=== PATIENT | female | born 1945 | race Caucasian/White ===

== ENCOUNTER 2017-01-01 07:41 | Day surgery (SDC) | payer OTHER ==
[~2017-01-01] VITALS: Ht 162.6 cm; Wt 63.0 kg
[~2017-01-01 07:41] MED LIST: ACETAMINOPHEN325 M1 PO; APRESOLINE50 MG PO; CIPRO250 MG PO; CUBICIN500 MG/10 IV; DEMADEX20 MG PO; GLIPIZIDE ER2.5 MG PO; GLIPIZIDE10 MG PO; GLUCOVANCE 51 TABLET PO; HEPARIN SO5000 UNITS SC; HYDROCODON-ACE1 EAC7 PO; LANTUS 3 M100 UNITS1 SC; LASIX20 MG PO; LISINOPRIL20 MG PO; LOSARTAN POTASS50 MG PO; MIRALAX17 GM PO; MUSCLE RELAXER; PROCARDIA XL60 MG PO; SENNA PLUS TAB1 EACH PO; SERTRALINE HCL25 MG PO; TORSEMIDE20 MG PO; ZESTRIL40 MG PO
[2017-01-01 08:15] VITALS: BP 184/75
[2017-01-01 09:13] LABS: ANION GAP 10 MEQ/L (2-14); CHLORIDE 101 MEQ/L (99-109); POTASSIUM 3.7 MEQ/L (3.7-5.4); SAMPLE HEMOLYSIS CHECK 0; SAMPLE ICTERIC CHECK 0; SAMPLE LIPEMIA CHECK 0; SODIUM 135 MEQ/L (136-147)
[2017-01-01 09:19] LABS: GFR ESTIMATE (CALCULATED) 15 mL/min/; GLUCOSE 113 mg/dL (70-99); UREA NITROGEN (BUN) 80 mg/dL (9-23)
[2017-01-01 11:17] LABS: POINT-OF-CARE METER ID UU13113675
[2017-01-01 11:35] VITALS: BP 195/82
[2017-01-01 12:09] VITALS: BP 187/83
== END 2017-01-01 12:15 | disposition home or self-care (01) ==
LOC: SDC 07:41
PROVIDERS: Ophthalmology
DX: H35.371 Puckering of macula, right eye (principal); H35.81 Retinal edema; I12.9 Hypertensive chronic kidney disease with stage 1 through stage 4 chronic kidney disease, or unspecified chronic kidney disease; E11.22 Type 2 diabetes mellitus with diabetic chronic kidney disease; N18.4 Chronic kidney disease, stage 4 (severe); M54.5 Low back pain
CPT/HCPCS: 80048; 82948; 93005; J0690; J0713; J2405; J3300

== ENCOUNTER 2017-02-25 05:03 | Day surgery (SDC) | payer OTHER ==
[~2017-02-25] VITALS: Ht 162.6 cm; Wt 62.0 kg
[2017-02-25 06:03] VITALS: BP 134/60
[2017-02-25 06:30] LABS: HEMATOCRIT 26.3 % (36.0-46.0); MCH 29.5 PG (29.0-34.0); MCHC 33.8 G/DL (30.0-36.0); MCV 87.1 FL (83-99); PLATELET COUNT 269 K/uL (156-360); RBC DIS.WIDTH-CV 12.2 % (11.8-14.6); RBC DIS.WIDTH-SD 39.2 % (39-53); RED BLOOD COUNT 3.02 M/uL (3.80-5.20); WHITE BLOOD COUNT 9.3 K/uL (4.1-10.2)
[2017-02-25 06:36] LABS: POINT-OF-CARE METER ID UU14174212
[2017-02-25 06:43] LABS: CHLORIDE 108 mEq/L (99-109); SODIUM 142 mEq/L (136-147)
[2017-02-25 06:44] LABS: GLUCOSE 152 mg/dL (70-99)
[2017-02-25 06:46] LABS: ANION GAP 13 MEQ/L (2-14)
[2017-02-25 06:48] LABS: GFR ESTIMATE (CALCULATED) 18 mL/min/
[2017-02-25 06:49] LABS: UREA NITROGEN (BUN) 64 mg/dL (9-23)
[2017-02-25 09:33] LABS: POINT-OF-CARE METER ID UU13113675; POINT-OF-CARE USER ID 515036437
[2017-02-25 10:04] VITALS: BP 136/53
[2017-02-25 11:20] VITALS: BP 140/66
[2017-02-25 13:03] VITALS: BP 131/49
[2017-02-25 14:34] VITALS: BP 109/46
== END 2017-02-25 13:37 | disposition home or self-care (01) ==
LOC: SDC 05:03
PROVIDERS: Surgery
DX: I12.0 Hypertensive chronic kidney disease with stage 5 chronic kidney disease or end stage renal disease (principal); E11.22 Type 2 diabetes mellitus with diabetic chronic kidney disease; N18.6 End stage renal disease; Z99.2 Dependence on renal dialysis; Z79.84 Long term (current) use of oral hypoglycemic drugs; Z82.49 Family history of ischemic heart disease and other diseases of the circulatory system; Z83.3 Family history of diabetes mellitus
CPT/HCPCS: 80048; 82948; 85027; J0690; J1170; J1644; J2250; J2720; J3010

== ENCOUNTER 2017-05-20 05:31 | Day surgery (SDC) | payer OTHER ==
[~2017-05-20] VITALS: Ht 162.6 cm; Wt 62.0 kg
[~2017-05-20 05:31] MED LIST changes: +CELEXA10 MG PO; +COZAAR100 MG PO; +METOLAZONE2.5 MG PO; +NIFEDIPINE ER60 MG PO
[2017-05-20 05:54] VITALS: BP 142/62
[2017-05-20 06:41] LABS: HEMATOCRIT 35.7 % (36.0-46.0); MCH 28.6 PG (29.0-34.0); MCHC 32.2 G/DL (30.0-36.0); MCV 88.8 FL (83-99); MEAN PLAT.VOLUME 11.1 uM^3 (9.5-12.4); PLATELET COUNT 323 K/uL (156-360); RBC DIS.WIDTH-CV 12.5 % (11.8-14.6); RBC DIS.WIDTH-SD 40.8 % (39-53); RED BLOOD COUNT 4.02 M/uL (3.80-5.20); WHITE BLOOD COUNT 8.9 K/uL (4.1-10.2)
[2017-05-20 07:11] LABS: ANION GAP 13 MEQ/L (2-14); CHLORIDE 108 MEQ/L (99-109); GFR ESTIMATE (CALCULATED) 15 mL/min/; GLUCOSE 123 mg/dL (70-99); POTASSIUM 4.2 MEQ/L (3.7-5.4); SAMPLE HEMOLYSIS CHECK 0; SAMPLE ICTERIC CHECK 0; SAMPLE LIPEMIA CHECK 0; SODIUM 141 MEQ/L (136-147); UREA NITROGEN (BUN) 76 mg/dL (9-23)
[2017-05-20 09:22] LABS: POINT-OF-CARE METER ID UU13113675
[2017-05-20 12:45] VITALS: BP 151/66
[2017-05-20 13:50] VITALS: BP 159/55
== END 2017-05-20 14:15 | disposition home or self-care (01) ==
LOC: SDC 05:31
PROVIDERS: Surgery
DX: I12.0 Hypertensive chronic kidney disease with stage 5 chronic kidney disease or end stage renal disease (principal); E11.22 Type 2 diabetes mellitus with diabetic chronic kidney disease; N18.6 End stage renal disease
CPT/HCPCS: 80048; 82948; 85027; J0690; J1170; J1644; J2250; J2405; J2720; J2765; J3010

== ENCOUNTER 2017-06-16 11:51 | Inpatient (IN) | payer OTHER ==
[~2017-06-16] VITALS: Ht 162.6 cm; Wt 65.9 kg
[2017-06-16 12:41] LABS: PROTHROMBIN TIME 10.5 SEC (10.2-12.9)
[2017-06-16 12:44] LABS: PTT 30.7 SEC (25-37)
[2017-06-16 12:45] LABS: AMYLASE 53 IU/L (1-118); CHLORIDE 108 mEq/L (99-109); POTASSIUM 4.9 mEq/L (3.7-5.4); SODIUM 138 mEq/L (136-147)
[2017-06-16 12:47] LABS: GLUCOSE 203 mg/dL (70-99)
[2017-06-16 12:48] LABS: ANION GAP 14 MEQ/L (2-14)
[2017-06-16 12:50] LABS: SERUM ETHYL ALCOHOL < 10 mg/dL
[2017-06-16 12:51] LABS: GFR ESTIMATE (CALCULATED) 12 mL/min/
[2017-06-16 12:52] LABS: UREA NITROGEN (BUN) 85 mg/dL (9-23)
[2017-06-16 12:53] LABS: EOSINOPHIL (%) 1.8 % (0-5); EOSINOPHIL COUNT 0.2 K/uL (0-0.3); HEMATOCRIT 33.6 % (36.0-46.0); IMMATURE GRANULOCYTE (%) 0.3 % (0.0-0.7); INSTRUMENT ABS NEUTROPHIL CT 6.7 K/uL; LYMPHOCYTE COUNT 2.2 K/uL (1.0-2.8); MCH 26.9 PG (29.0-34.0); MCHC 31.8 G/DL (30.0-36.0); MCV 84.4 FL (83-99); MEAN PLAT.VOLUME 11.8 uM^3 (9.5-12.4); MONOCYTE (%) 3.8 % (3-12); MONOCYTE COUNT 0.4 K/uL (0-0.8); NEUTROPHIL (%) 70.6 % (45-76); NEUTROPHIL COUNT 6.7 K/uL (1.8-6.4); PLATELET COUNT 274 K/uL (156-360); RBC DIS.WIDTH-CV 13.2 % (11.8-14.6); RBC DIS.WIDTH-SD 40.9 % (39-53); RED BLOOD COUNT 3.98 M/uL (3.80-5.20); TROP-I INTERPRETATION NEGATIVE; TROPONIN-I 0.01 ng/mL (0.0-0.30); WHITE BLOOD COUNT 9.5 K/uL (4.1-10.2)
[2017-06-16 12:54] LABS: LIPASE 35 U/L (1.0-51.0)
[2017-06-16 15:01] LABS: ADD MIUA? YES; BILIRUBIN NEGATIVE; BLOOD NEGATIVE; COLOR YELLOW ((YELLOW)); GLUCOSE (STRIP) NEGATIVE; KETONES NEGATIVE; LEUKOCYTES NEGATIVE; NITRITE NEGATIVE; PROTEIN (STRIP) 30; SPECIFIC GRAVITY 1.009 (1.000-1.030); UROBILINOGEN 0.2 MG/DL (0.2-1.0)
[2017-06-16 15:14] LABS: AMPHETAMINE NEGATIVE (500 ng/mL); BARBITURATES NEGATIVE (200 ng/mL); BENZODIAZEPINES NEGATIVE (150 ng/mL); COCAINE NEGATIVE (150 ng/mL); INTERNAL CONTROLS VALID? YES; METHADONE NEGATIVE (200 ng/mL); METHAMPHETAMINE NEGATIVE (500 ng/mL); OPIATES (MORPHINE) NEGATIVE (100 ng/mL); OXYCODONE NEGATIVE (100 ng/mL); PHENCYCLIDINE NEGATIVE (25 ng/mL); PROPOXYPHENE NEGATIVE (300 ng/mL); THC CANNABINOIDS NEGATIVE (50 ng/mL); TRICYCLIC ANTIDEPRESSANTS NEGATIVE (300 ng/mL)
[2017-06-16 15:26] LABS: BACTERIA NONE SEEN /HPF; EPITHELIAL CELLS RARE /HPF; MUCUS NONE SEEN /LPF; RED BLOOD CELLS NONE SEEN /HPF (0-5); UCUL ADDED? NO; WHITE BLOOD CELLS NONE SEEN /HPF (0-5)
[2017-06-16 15:27] LABS: AMORPHOUS URATES CRYSTALS 3+; CASTS NONE SEEN /LPF; CRYSTALS PRESENT
[2017-06-16] MEDS ORDERED: APRESOLINE50 MG PO (16:08)
[2017-06-16] MEDS ORDERED: GLUCOTROL XL2.5 MG PO (16:10)
[2017-06-16] MEDS ORDERED: HYDROCODON-ACE1 EAC7 PO (16:14)
[2017-06-16] MEDS ORDERED: FLEXERIL5 MG PO (16:18)
[2017-06-16] MEDS ORDERED: PROCRIT10000 UNI1 IV (16:19)
[2017-06-16 18:34] VITALS: BP 190/82
[2017-06-16 19:55] VITALS: BP 188/66
[2017-06-16 21:15] VITALS: BP 190/68
[2017-06-16 21:54] VITALS: BP 178/60
[2017-06-16 23:57] VITALS: BP 134/80
[2017-06-17] VITALS (8 sets, daily range): BP systolic 132–205; BP diastolic 70–86
[2017-06-17 05:58] LABS: HDL CHOLESTEROL 38 MG/DL (Desirable>=50); LDL CHOLESTEROL 99 mg/dL (Desirable<100); NON-HDL CHOLESTEROL 126 mg/dL (Desirable<160); TOTAL CHOLESTEROL 164 mg/dL (Desirable<200); TRIGLYCERIDES 137 MG/DL (Normal: <150)
[2017-06-17 07:38] LABS: Estimated Average Glucose 114 mg/dL (70-123)
[2017-06-17 08:17] LABS: HEMOGLOBIN A1c (GLYCOHEMOGLOB) 5.6 % HGB (Below 5.7)
[2017-06-17 16:36] LABS: POINT-OF-CARE METER ID UU13113717
[2017-06-17 23:53] LABS: POINT-OF-CARE METER ID UU13113717
[2017-06-18 04:07] VITALS: BP 149/66
[2017-06-18 04:18] LABS: EOSINOPHIL (%) 0.3 % (0-5); HEMATOCRIT 34.5 % (36.0-46.0); IMMATURE GRANULOCYTE (%) 0.3 % (0.0-0.7); INSTRUMENT ABS NEUTROPHIL CT 6.9 K/uL; MCHC 31.9 G/DL (30.0-36.0); MCV 84.6 FL (83-99); MONOCYTE (%) 4.9 % (3-12); MONOCYTE COUNT 0.5 K/uL (0-0.8); NEUTROPHIL (%) 73.3 % (45-76); NEUTROPHIL COUNT 6.9 K/uL (1.8-6.4); PLATELET COUNT 292 K/uL (156-360); RBC DIS.WIDTH-CV 13.7 % (11.8-14.6); RBC DIS.WIDTH-SD 42.5 % (39-53); RED BLOOD COUNT 4.08 M/uL (3.80-5.20); WHITE BLOOD COUNT 9.4 K/uL (4.1-10.2)
[2017-06-18 04:42] LABS: CHLORIDE 112 mEq/L (99-109); MAGNESIUM 2.3 mg/dL (1.3-2.7); POTASSIUM 5.2 mEq/L (3.7-5.4); SODIUM 142 mEq/L (136-147)
[2017-06-18 04:44] LABS: GLUCOSE 128 mg/dL (70-99)
[2017-06-18 04:45] LABS: ANION GAP 12 MEQ/L (2-14)
[2017-06-18 04:48] LABS: GFR ESTIMATE (CALCULATED) 15 mL/min/; UREA NITROGEN (BUN) 81 mg/dL (9-23)
[2017-06-18 07:58] LABS: POINT-OF-CARE METER ID UU13113717
[2017-06-18 08:42] VITALS: BP 142/78
[2017-06-18 10:34] LABS: UR CREATININE CONCENTRATION 59.8 MG/DL
[2017-06-18 13:03] VITALS: BP 162/88
[2017-06-18 16:07] VITALS: BP 140/69
[2017-06-18 19:29] VITALS: BP 129/61
[2017-06-18 23:39] VITALS: BP 155/69
[2017-06-19 04:04] VITALS: BP 121/64
[2017-06-19 05:27] LABS: EOSINOPHIL COUNT 0.3 K/uL (0-0.3); HEMATOCRIT 31.4 % (36.0-46.0); IMMATURE GRANULOCYTE (%) 0.4 % (0.0-0.7); INSTRUMENT ABS NEUTROPHIL CT 5.2 K/uL; LYMPHOCYTE COUNT 2.4 K/uL (1.0-2.8); MCH 27.5 PG (29.0-34.0); MCHC 31.5 G/DL (30.0-36.0); MCV 87.2 FL (83-99); MEAN PLAT.VOLUME 10.9 uM^3 (9.5-12.4); MONOCYTE (%) 6.5 % (3-12); MONOCYTE COUNT 0.6 K/uL (0-0.8); NEUTROPHIL (%) 61.9 % (45-76); NEUTROPHIL COUNT 5.2 K/uL (1.8-6.4); PLATELET COUNT 255 K/uL (156-360); RBC DIS.WIDTH-CV 13.7 % (11.8-14.6); RBC DIS.WIDTH-SD 43.3 % (39-53); WHITE BLOOD COUNT 8.5 K/uL (4.1-10.2)
[2017-06-19 06:16] LABS: ANION GAP 11 MEQ/L (2-14); CHLORIDE 108 MEQ/L (99-109); GFR ESTIMATE (CALCULATED) 12 mL/min/; GLUCOSE 117 mg/dL (70-99); POTASSIUM 4.9 MEQ/L (3.7-5.4); SAMPLE HEMOLYSIS CHECK 0; SAMPLE ICTERIC CHECK 0; SAMPLE LIPEMIA CHECK 0; SODIUM 140 MEQ/L (136-147); UREA NITROGEN (BUN) 85 mg/dL (9-23)
[2017-06-19 08:22] VITALS: BP 150/68
[2017-06-19 11:46] VITALS: BP 139/52
[2017-06-19 15:42] VITALS: BP 141/66
[2017-06-19 18:10] LABS: POINT-OF-CARE METER ID UU14188625
[2017-06-19 19:43] VITALS: BP 151/67
[2017-06-19 23:49] VITALS: BP 160/60
[2017-06-20 06:27] LABS: EOSINOPHIL COUNT 0.3 K/uL (0-0.3); HEMATOCRIT 29.1 % (36.0-46.0); IMMATURE GRANULOCYTE (%) 0.3 % (0.0-0.7); INSTRUMENT ABS NEUTROPHIL CT 4.4 K/uL; LYMPHOCYTE COUNT 2.6 K/uL (1.0-2.8); MCH 27.8 PG (29.0-34.0); MCHC 32.3 G/DL (30.0-36.0); MCV 86.1 FL (83-99); MEAN PLAT.VOLUME 11.8 uM^3 (9.5-12.4); MONOCYTE (%) 6.4 % (3-12); MONOCYTE COUNT 0.5 K/uL (0-0.8); NEUTROPHIL (%) 56.2 % (45-76); NEUTROPHIL COUNT 4.4 K/uL (1.8-6.4); PLATELET COUNT 222 K/uL (156-360); RBC DIS.WIDTH-CV 13.7 % (11.8-14.6); RED BLOOD COUNT 3.38 M/uL (3.80-5.20); WHITE BLOOD COUNT 7.8 K/uL (4.1-10.2)
[2017-06-20 06:52] LABS: ANION GAP 11 MEQ/L (2-14); CHLORIDE 108 MEQ/L (99-109); GFR ESTIMATE (CALCULATED) 11 mL/min/; GLUCOSE 96 mg/dL (70-99); POTASSIUM 4.7 MEQ/L (3.7-5.4); SAMPLE HEMOLYSIS CHECK 0; SAMPLE ICTERIC CHECK 0; SAMPLE LIPEMIA CHECK 0; SODIUM 138 MEQ/L (136-147); UREA NITROGEN (BUN) 84 mg/dL (9-23)
[2017-06-20 08:58] VITALS: BP 146/59
[2017-06-20 12:07] LABS: POINT-OF-CARE METER ID UU14174225
[2017-06-20] MEDS ORDERED: NOVOLOG PE100 UNITS/ SC (12:25)
[2017-06-20] MEDS ORDERED: JANUVIA25 MG PO (12:25)
[2017-06-20] MEDS ORDERED: TORSEMIDE10 MG PO (12:25)
[2017-06-20] MEDS ORDERED: APRESOLINE100 MG PO (12:26)
[2017-06-20] MEDS ORDERED: LIPITOR20 MG PO (12:30)
[2017-06-20] MEDS ORDERED: APRESOLINE10 MG IV (15:04)
[2017-06-20] MEDS ORDERED: ZOFRAN4 MG IV (15:05)
[2017-06-20] MEDS ORDERED: GLIPIZIDE5 MG PO (15:05)
[2017-06-20] MEDS ORDERED: PRAVACHOL40 MG PO (15:06)
[2017-06-20] MEDS ORDERED: CATAPRES0.1 MG PO (15:06)
[2017-06-20] MEDS ORDERED: ASPIRIN325 MG PO (15:07)
== END 2017-06-20 13:15 | DRG 65 ==
LOC: EME 11:51 → EDOF 15:28 → 5SOUTH 15:28 → ENRESERV 15:38 → 5SOUTH 17:57
PROVIDERS: Emergency Medicine; Internal Medicine; Internal Medicine Nephrology
DX: I63.9 Cerebral infarction, unspecified (principal); G81.94 Hemiplegia, unspecified affecting left nondominant side; I12.9 Hypertensive chronic kidney disease with stage 1 through stage 4 chronic kidney disease, or unspecified chronic kidney disease; N18.4 Chronic kidney disease, stage 4 (severe); N17.9 Acute kidney failure, unspecified; T50.2X5A Adverse effect of carbonic-anhydrase inhibitors, benzothiadiazides and other diuretics, initial encounter; N13.30 Unspecified hydronephrosis; N31.9 Neuromuscular dysfunction of bladder, unspecified; R33.9 Retention of urine, unspecified; E11.22 Type 2 diabetes mellitus with diabetic chronic kidney disease; E78.5 Hyperlipidemia, unspecified; Z91.14 Patient's other noncompliance with medication regimen; Z91.19 Patient's noncompliance with other medical treatment and regimen; Z79.84 Long term (current) use of oral hypoglycemic drugs; Z79.82 Long term (current) use of aspirin; Z86.73 Personal history of transient ischemic attack (TIA), and cerebral infarction without residual deficits
CPT/HCPCS: 70450; 70551; 76770; 80048; 80061; 81003; 82150; 82570; 82948; 83036; 83690; 83735; 84100; 84156; 84484; 85025; 85610; 85730; 86900; 86901; 87086; 92610 GN; 93005; 93880; 99281; 99285; G0480; J0360; J1815; J2405

== ENCOUNTER 2017-06-20 12:17 | Inpatient (IN) | payer OTHER ==
[~2017-06-20] VITALS: Ht 162.6 cm; Wt 65.8 kg
[~2017-06-20 12:17] MED LIST changes: +FLEXERIL5 MG PO; +GLUCOTROL XL2.5 MG PO; +PROCRIT10000 UNI1 IV
[2017-06-20] MEDS ORDERED: JANUVIA25 MG PO (12:25)
[2017-06-20] MEDS ORDERED: NOVOLOG PE100 UNITS/ SC (12:25)
[2017-06-20] MEDS ORDERED: TORSEMIDE10 MG PO (12:25)
[2017-06-20] MEDS ORDERED: APRESOLINE100 MG PO (12:26)
[2017-06-20] MEDS ORDERED: LIPITOR20 MG PO (12:30)
[2017-06-20 13:32] VITALS: BP 160/80
[2017-06-20] MEDS ORDERED: APRESOLINE10 MG IV (15:04)
[2017-06-20] MEDS ORDERED: ZOFRAN4 MG IV (15:05)
[2017-06-20] MEDS ORDERED: GLIPIZIDE5 MG PO (15:05)
[2017-06-20] MEDS ORDERED: PRAVACHOL40 MG PO (15:06)
[2017-06-20] MEDS ORDERED: CATAPRES0.1 MG PO (15:06)
[2017-06-20] MEDS ORDERED: ASPIRIN325 MG PO (15:07)
[2017-06-20 15:50] VITALS: BP 157/67
[2017-06-20 16:37] LABS: POINT-OF-CARE METER ID UU13113720
[2017-06-20 21:06] LABS: POINT-OF-CARE METER ID UU13113712
[2017-06-21 00:30] VITALS: BP 145/70
[2017-06-21 04:54] VITALS: BP 136/61
[2017-06-21 05:31] LABS: HEMATOCRIT 28.4 % (36.0-46.0); MCH 26.7 PG (29.0-34.0); MCHC 31.3 G/DL (30.0-36.0); MCV 85.3 FL (83-99); MEAN PLAT.VOLUME 11.4 uM^3 (9.5-12.4); PLATELET COUNT 210 K/uL (156-360); RBC DIS.WIDTH-CV 13.6 % (11.8-14.6); RBC DIS.WIDTH-SD 42.5 % (39-53); RED BLOOD COUNT 3.33 M/uL (3.80-5.20); WHITE BLOOD COUNT 7.6 K/uL (4.1-10.2)
[2017-06-21 06:14] LABS: ALKALINE PHOSPHATASE 48 IU/L (3-129); ANION GAP 12 MEQ/L (2-14); CHLORIDE 106 MEQ/L (99-109); GFR ESTIMATE (CALCULATED) 12 mL/min/; GLUCOSE 111 mg/dL (70-99); POTASSIUM 4.7 MEQ/L (3.7-5.4); SAMPLE HEMOLYSIS CHECK 0; SAMPLE ICTERIC CHECK 0; SAMPLE LIPEMIA CHECK 0; SODIUM 137 MEQ/L (136-147); TOTAL BILIRUBIN 0.2 MG/DL (0.0-1.0); UREA NITROGEN (BUN) 87 mg/dL (9-23)
[2017-06-21 06:28] LABS: POINT-OF-CARE METER ID UU13113720; POINT-OF-CARE USER ID ENVGAF
[2017-06-21 11:28] LABS: POINT-OF-CARE METER ID UU13113720
[2017-06-21 15:28] VITALS: BP 138/65
[2017-06-21 15:46] LABS: POINT-OF-CARE METER ID UU13113720
[2017-06-21 20:41] LABS: POINT-OF-CARE METER ID UU13113720
[2017-06-22 05:40] VITALS: BP 108/53
[2017-06-22 06:48] LABS: POINT-OF-CARE METER ID UU13113720; POINT-OF-CARE USER ID AHSSSJB31
[2017-06-22 12:19] LABS: POINT-OF-CARE METER ID UU13113720; POINT-OF-CARE USER ID AHSSSJB31
[2017-06-22 15:45] VITALS: BP 127/60
[2017-06-22 16:34] LABS: EOSINOPHIL (%) 1.1 % (0-5); EOSINOPHIL COUNT 0.1 K/uL (0-0.3); HEMATOCRIT 30.4 % (36.0-46.0); IMMATURE GRANULOCYTE (%) 0.3 % (0.0-0.7); INSTRUMENT ABS NEUTROPHIL CT 4.4 K/uL; LYMPHOCYTE COUNT 2.1 K/uL (1.0-2.8); MCHC 32.6 G/DL (30.0-36.0); MCV 86.1 FL (83-99); MEAN PLAT.VOLUME 11.9 uM^3 (9.5-12.4); MONOCYTE (%) 5.8 % (3-12); MONOCYTE COUNT 0.4 K/uL (0-0.8); NEUTROPHIL COUNT 4.4 K/uL (1.8-6.4); PLATELET COUNT 237 K/uL (156-360); RBC DIS.WIDTH-CV 13.8 % (11.8-14.6); RBC DIS.WIDTH-SD 43.5 % (39-53); RED BLOOD COUNT 3.53 M/uL (3.80-5.20)
[2017-06-22 16:58] LABS: POINT-OF-CARE METER ID UU13113712
[2017-06-22 17:00] LABS: ALKALINE PHOSPHATASE 72 IU/L (3-129); ANION GAP 13 MEQ/L (2-14); CHLORIDE 105 MEQ/L (99-109); GFR ESTIMATE (CALCULATED) 10 mL/min/; GLUCOSE 132 mg/dL (70-99); POTASSIUM 5.3 MEQ/L (3.7-5.4); SAMPLE HEMOLYSIS CHECK 0; SAMPLE ICTERIC CHECK 0; SAMPLE LIPEMIA CHECK 0; SODIUM 135 MEQ/L (136-147); UREA NITROGEN (BUN) 95 mg/dL (9-23)
[2017-06-22 17:04] LABS: TOTAL BILIRUBIN 0.3 MG/DL (0.0-1.0)
[2017-06-22 21:15] LABS: POINT-OF-CARE METER ID UU13113720
[2017-06-23 04:16] VITALS: BP 130/66
[2017-06-23 06:48] LABS: POINT-OF-CARE METER ID UU13113720; POINT-OF-CARE USER ID AHSSSJB31
[2017-06-23 07:02] LABS: ANION GAP 12 MEQ/L (2-14); CHLORIDE 106 MEQ/L (99-109); GFR ESTIMATE (CALCULATED) 10 mL/min/; GLUCOSE 101 mg/dL (70-99); POTASSIUM 5.3 MEQ/L (3.7-5.4); SAMPLE HEMOLYSIS CHECK 0; SAMPLE ICTERIC CHECK 0; SAMPLE LIPEMIA CHECK 0; SODIUM 136 MEQ/L (136-147)
[2017-06-23 07:03] LABS: UREA NITROGEN (BUN) 101 mg/dL (9-23)
[2017-06-23 11:45] LABS: POINT-OF-CARE METER ID UU13113712; POINT-OF-CARE USER ID AHSSSJB31
[2017-06-23 16:28] VITALS: BP 149/63
[2017-06-23 16:52] LABS: POINT-OF-CARE METER ID UU13113712
[2017-06-23 20:35] VITALS: BP 160/70
[2017-06-24 05:39] VITALS: BP 129/59
[2017-06-24 05:47] LABS: EOSINOPHIL (%) 4.7 % (0-5); EOSINOPHIL COUNT 0.3 K/uL (0-0.3); HEMATOCRIT 27.3 % (36.0-46.0); IMMATURE GRANULOCYTE (%) 0.1 % (0.0-0.7); INSTRUMENT ABS NEUTROPHIL CT 4.5 K/uL; LYMPHOCYTE COUNT 1.7 K/uL (1.0-2.8); MCH 26.5 PG (29.0-34.0); MCHC 30.8 G/DL (30.0-36.0); MCV 86.1 FL (83-99); MEAN PLAT.VOLUME 11.9 uM^3 (9.5-12.4); MONOCYTE (%) 6.3 % (3-12); MONOCYTE COUNT 0.4 K/uL (0-0.8); NEUTROPHIL (%) 64.6 % (45-76); NEUTROPHIL COUNT 4.5 K/uL (1.8-6.4); PLATELET COUNT 212 K/uL (156-360); RBC DIS.WIDTH-CV 13.8 % (11.8-14.6); RBC DIS.WIDTH-SD 43.7 % (39-53); RED BLOOD COUNT 3.17 M/uL (3.80-5.20)
[2017-06-24 06:10] LABS: ANION GAP 10 MEQ/L (2-14); CHLORIDE 106 MEQ/L (99-109); GFR ESTIMATE (CALCULATED) 12 mL/min/; GLUCOSE 112 mg/dL (70-99); POTASSIUM 4.7 MEQ/L (3.7-5.4); SAMPLE HEMOLYSIS CHECK 0; SAMPLE ICTERIC CHECK 0; SAMPLE LIPEMIA CHECK 0; SODIUM 134 MEQ/L (136-147); UREA NITROGEN (BUN) 93 mg/dL (9-23)
[2017-06-24 07:57] LABS: POINT-OF-CARE METER ID UU13113720; POINT-OF-CARE USER ID AHSSSJB31
[2017-06-24 11:21] LABS: POINT-OF-CARE METER ID UU13113712; POINT-OF-CARE USER ID AHSSSJB31
[2017-06-24 16:28] LABS: POINT-OF-CARE METER ID UU13113712
[2017-06-24 17:31] LABS: ADD MIUA? YES; BILIRUBIN NEGATIVE; BLOOD NEGATIVE; COLOR YELLOW ((YELLOW)); GLUCOSE (STRIP) 50; KETONES NEGATIVE; LEUKOCYTES SMALL; NITRITE NEGATIVE; PROTEIN (STRIP) 100; SPECIFIC GRAVITY 1.012 (1.000-1.030); UROBILINOGEN 0.2 MG/DL (0.2-1.0)
[2017-06-24 18:00] LABS: RED BLOOD CELLS 0-5 /HPF (0-5); WHITE BLOOD CELLS TNTC /HPF (0-5)
[2017-06-24 18:01] LABS: BACTERIA 3+ /HPF; EPITHELIAL CELLS 1+ /HPF; MUCUS NONE SEEN /LPF; UCUL ADDED? YES
[2017-06-24 21:34] LABS: POINT-OF-CARE METER ID UU13113712
[2017-06-25 05:25] VITALS: BP 144/67
[2017-06-25 06:07] LABS: ANION GAP 12 MEQ/L (2-14); CHLORIDE 105 MEQ/L (99-109); GFR ESTIMATE (CALCULATED) 12 mL/min/; POTASSIUM 4.6 MEQ/L (3.7-5.4); SAMPLE HEMOLYSIS CHECK 0; SAMPLE ICTERIC CHECK 0; SAMPLE LIPEMIA CHECK 0; SODIUM 133 MEQ/L (136-147); UREA NITROGEN (BUN) 94 mg/dL (9-23)
[2017-06-25 06:13] LABS: GLUCOSE 75 mg/dL (70-99)
[2017-06-25 06:40] LABS: POINT-OF-CARE METER ID UU13113712; POINT-OF-CARE USER ID ENVGAF
[2017-06-25 11:44] LABS: POINT-OF-CARE METER ID UU13113712; POINT-OF-CARE USER ID ENVGAF
[2017-06-25 15:23] VITALS: BP 156/69
[2017-06-25 16:25] LABS: POINT-OF-CARE METER ID UU13113712; POINT-OF-CARE USER ID ENVGAF
[2017-06-25 18:29] VITALS: BP 148/65
[2017-06-25 21:32] LABS: POINT-OF-CARE METER ID UU13113720
[2017-06-26 05:29] VITALS: BP 100/48
[2017-06-26 06:48] LABS: POINT-OF-CARE METER ID UU13113720; POINT-OF-CARE USER ID ENVGAF
[2017-06-26 06:51] LABS: HEMATOCRIT 24.1 % (36.0-46.0); MCH 26.9 PG (29.0-34.0); MCHC 31.5 G/DL (30.0-36.0); MCV 85.2 FL (83-99); MEAN PLAT.VOLUME 12.5 uM^3 (9.5-12.4); PLATELET COUNT 194 K/uL (156-360); RBC DIS.WIDTH-CV 13.9 % (11.8-14.6); RBC DIS.WIDTH-SD 43.7 % (39-53); RED BLOOD COUNT 2.83 M/uL (3.80-5.20); WHITE BLOOD COUNT 8.1 K/uL (4.1-10.2)
[2017-06-26 07:32] LABS: ANION GAP 12 MEQ/L (2-14); CHLORIDE 102 MEQ/L (99-109); GFR ESTIMATE (CALCULATED) 12 mL/min/; POTASSIUM 5.3 MEQ/L (3.7-5.4); SAMPLE HEMOLYSIS CHECK 0; SAMPLE ICTERIC CHECK 0; SAMPLE LIPEMIA CHECK 0; SODIUM 132 MEQ/L (136-147)
[2017-06-26 07:33] LABS: GLUCOSE 108 mg/dL (70-99); UREA NITROGEN (BUN) 109 mg/dL (9-23)
[2017-06-26 11:37] LABS: POINT-OF-CARE METER ID UU13113720; POINT-OF-CARE USER ID ENVGAF
[2017-06-26 11:48] VITALS: BP 110/48
[2017-06-26 13:39] LABS: EOSINOPHIL (%) 0.5 % (0-5); HEMATOCRIT 24.2 % (36.0-46.0); IMMATURE GRANULOCYTE (%) 0.4 % (0.0-0.7); INSTRUMENT ABS NEUTROPHIL CT 5.3 K/uL; LYMPHOCYTE COUNT 1.6 K/uL (1.0-2.8); MCH 28.2 PG (29.0-34.0); MCHC 33.1 G/DL (30.0-36.0); MCV 85.2 FL (83-99); MEAN PLAT.VOLUME 12.9 uM^3 (9.5-12.4); MONOCYTE (%) 6.6 % (3-12); MONOCYTE COUNT 0.5 K/uL (0-0.8); NEUTROPHIL COUNT 5.3 K/uL (1.8-6.4); PLATELET COUNT 200 K/uL (156-360); RBC DIS.WIDTH-CV 14.1 % (11.8-14.6); RBC DIS.WIDTH-SD 43.7 % (39-53); RED BLOOD COUNT 2.84 M/uL (3.80-5.20); WHITE BLOOD COUNT 7.4 K/uL (4.1-10.2)
[2017-06-26 14:00] VITALS: BP 98/48
[2017-06-26 14:10] VITALS: BP 110/56
[2017-06-26 14:50] LABS: MCH 27.9 PG (29.0-34.0); MCHC 32.9 G/DL (30.0-36.0); MCV 84.8 FL (83-99); MEAN PLAT.VOLUME 13.1 uM^3 (9.5-12.4); PLATELET COUNT 195 K/uL (156-360); RBC DIS.WIDTH-CV 14.2 % (11.8-14.6); RED BLOOD COUNT 2.83 M/uL (3.80-5.20); WHITE BLOOD COUNT 7.6 K/uL (4.1-10.2)
[2017-06-26 14:55] LABS: ANION GAP 13 MEQ/L (2-14); CHLORIDE 102 MEQ/L (99-109); POTASSIUM 5.3 MEQ/L (3.7-5.4); SAMPLE HEMOLYSIS CHECK 0; SAMPLE ICTERIC CHECK 0; SAMPLE LIPEMIA CHECK 0; SODIUM 131 MEQ/L (136-147)
[2017-06-26 15:05] LABS: TROP-I INTERPRETATION NEGATIVE; TROPONIN-I 0.02 ng/mL (0.0-0.30)
[2017-06-26 15:19] LABS: GFR ESTIMATE (CALCULATED) 12 mL/min/
[2017-06-26 15:20] LABS: GLUCOSE 166 mg/dL (70-99); UREA NITROGEN (BUN) 114 mg/dL (9-23)
== END 2017-06-26 14:37 | DRG 56 ==
LOC: 3WEST 12:17 → ENRESERV 06-26 14:27 → 3WEST 06-26 14:37 → CANRESERV 06-26 14:39 → ENRESERV 06-26 14:39
PROVIDERS: Hospitalist; Internal Medicine Nephrology; Psychiatry & Neurology Neurology
PROC: F07M0ZZ Range of Motion and Joint Mobility Treatment of Musculoskeletal System - Whole Body (ICD-10-PCS; principal; 2017-06-20)
DX: I69.354 Hemiplegia and hemiparesis following cerebral infarction affecting left non-dominant side (principal); D63.1 Anemia in chronic kidney disease; I12.0 Hypertensive chronic kidney disease with stage 5 chronic kidney disease or end stage renal disease; E11.22 Type 2 diabetes mellitus with diabetic chronic kidney disease; E78.5 Hyperlipidemia, unspecified; I95.9 Hypotension, unspecified; B96.20 Unspecified Escherichia coli [E. coli] as the cause of diseases classified elsewhere; N39.0 Urinary tract infection, site not specified; N17.9 Acute kidney failure, unspecified; N18.6 End stage renal disease; G93.40 Encephalopathy, unspecified
CPT/HCPCS: 71010; 80048; 80048 91; 80053; 81003; 82948; 83735; 84484; 85025; 85027; 86900; 86901; 86920; 87077; 87086; 87186; 93005; 94799; 97110 GO; 97530 GP; J0696; J1644; J1815; J7050; P9016

== ENCOUNTER 2017-06-26 14:43 | Inpatient (IN) | payer OTHER ==
[~2017-06-26] VITALS: Ht 162.6 cm; Wt 72.4 kg
[~2017-06-26 14:43] MED LIST changes: +APRESOLINE10 MG IV; +APRESOLINE100 MG PO; +ASPIRIN325 MG PO; +CATAPRES0.1 MG PO; +GLIPIZIDE5 MG PO; +JANUVIA25 MG PO; +LIPITOR20 MG PO; +NOVOLOG PE100 UNITS/ SC; +PRAVACHOL40 MG PO; +TORSEMIDE10 MG PO; +ZOFRAN4 MG IV
[2017-06-26 14:47] VITALS: BP 121/68
[2017-06-26 17:12] LABS: POINT-OF-CARE METER ID UU13113698
[2017-06-26 20:17] VITALS: BP 144/63
[2017-06-26 20:41] LABS: POINT-OF-CARE USER ID ENVMNS
[2017-06-27] VITALS (7 sets, daily range): BP systolic 120–185; BP diastolic 59–84
[2017-06-27 06:26] LABS: HEMATOCRIT 22.8 % (36.0-46.0); MCH 27.2 PG (29.0-34.0); MCHC 31.6 G/DL (30.0-36.0); MEAN PLAT.VOLUME 12.6 uM^3 (9.5-12.4); PLATELET COUNT 195 K/uL (156-360); RBC DIS.WIDTH-CV 14.2 % (11.8-14.6); RBC DIS.WIDTH-SD 44.2 % (39-53); RED BLOOD COUNT 2.65 M/uL (3.80-5.20); WHITE BLOOD COUNT 6.5 K/uL (4.1-10.2)
[2017-06-27 07:18] LABS: ANION GAP 12 MEQ/L (2-14); CHLORIDE 106 MEQ/L (99-109); GFR ESTIMATE (CALCULATED) 11 mL/min/; POTASSIUM 4.8 MEQ/L (3.7-5.4); SAMPLE HEMOLYSIS CHECK 0; SAMPLE ICTERIC CHECK 0; SAMPLE LIPEMIA CHECK 0; SODIUM 134 MEQ/L (136-147)
[2017-06-27 07:19] LABS: ALKALINE PHOSPHATASE 132 IU/L (3-129); GLUCOSE 74 mg/dL (70-99); TOTAL BILIRUBIN 0.2 MG/DL (0.0-1.0); UREA NITROGEN (BUN) 113 mg/dL (9-23)
[2017-06-27 14:21] LABS: HEMATOCRIT 21.5 % (36.0-46.0)
[2017-06-28] VITALS (7 sets, daily range): BP systolic 122–169; BP diastolic 64–94
[2017-06-28 03:09] LABS: HEMATOCRIT 29.1 % (36.0-46.0); MCV 85.8 FL (83-99)
[2017-06-28 07:13] LABS: HEMATOCRIT 30.4 % (36.0-46.0); MCH 27.3 PG (29.0-34.0); MCHC 31.9 G/DL (30.0-36.0); MCV 85.6 FL (83-99); MEAN PLAT.VOLUME 12.7 uM^3 (9.5-12.4); PLATELET COUNT 205 K/uL (156-360); RBC DIS.WIDTH-CV 14.5 % (11.8-14.6); RBC DIS.WIDTH-SD 45.2 % (39-53); WHITE BLOOD COUNT 8.3 K/uL (4.1-10.2)
[2017-06-28 07:25] LABS: RED BLOOD COUNT 3.55 M/uL (3.80-5.20)
[2017-06-28 07:44] LABS: ANION GAP 12 MEQ/L (2-14); CHLORIDE 111 MEQ/L (99-109); GFR ESTIMATE (CALCULATED) 12 mL/min/; POTASSIUM 4.8 MEQ/L (3.7-5.4); SAMPLE HEMOLYSIS CHECK 0; SAMPLE ICTERIC CHECK 0; SAMPLE LIPEMIA CHECK 0; SODIUM 139 MEQ/L (136-147); UREA NITROGEN (BUN) 94 mg/dL (9-23)
[2017-06-28 07:46] LABS: GLUCOSE 99 mg/dL (70-99)
[2017-06-28 11:19] LABS: POINT-OF-CARE METER ID UU13113781
[2017-06-28 16:13] LABS: POINT-OF-CARE METER ID UU13113803
[2017-06-28 20:53] LABS: POINT-OF-CARE METER ID UU13113781
[2017-06-29 03:57] VITALS: BP 151/66
[2017-06-29 07:25] VITALS: BP 161/73
[2017-06-29 07:48] LABS: POINT-OF-CARE USER ID ENVKC36
[2017-06-29 10:43] LABS: POINT-OF-CARE METER ID UU14107333
[2017-06-29 12:04] LABS: POINT-OF-CARE METER ID UU13113819
[2017-06-29 12:49] VITALS: BP 130/63
[2017-06-29 13:44] LABS: HBSG INDEX 0.16; HPCA INDEX 0.08
[2017-06-29 13:46] LABS: ANTI-HEPATITIS A VIRUS (IGM) Nonreactive; HAV INDEX 0.19
[2017-06-29 13:47] LABS: ANTI-HEPATITIS B CORE (IGM) Nonreactive; HBC IgM INDEX 0.06
[2017-06-29 16:08] VITALS: BP 149/67
[2017-06-29 16:45] LABS: HEMATOCRIT 30.5 % (36.0-46.0); MCV 89.2 FL (83-99)
[2017-06-29 16:47] LABS: POINT-OF-CARE METER ID UU13113781; POINT-OF-CARE USER ID ENVKC36
[2017-06-29 19:16] VITALS: BP 132/60
[2017-06-29 21:06] LABS: POINT-OF-CARE METER ID UU13113781
[2017-06-29 23:06] VITALS: BP 137/60
[2017-06-30 03:39] VITALS: BP 136/60
[2017-06-30 05:18] LABS: EOSINOPHIL (%) 2.5 % (0-5); EOSINOPHIL COUNT 0.2 K/uL (0-0.3); HEMATOCRIT 29.7 % (36.0-46.0); IMMATURE GRANULOCYTE (%) 0.3 % (0.0-0.7); INSTRUMENT ABS NEUTROPHIL CT 3.8 K/uL; LYMPHOCYTE COUNT 2.4 K/uL (1.0-2.8); MCH 29.1 PG (29.0-34.0); MCHC 32.3 G/DL (30.0-36.0); MEAN PLAT.VOLUME 13.4 uM^3 (9.5-12.4); MONOCYTE (%) 9.8 % (3-12); MONOCYTE COUNT 0.7 K/uL (0-0.8); NEUTROPHIL COUNT 3.8 K/uL (1.8-6.4); PLATELET COUNT 214 K/uL (156-360); RBC DIS.WIDTH-SD 49.1 % (39-53); WHITE BLOOD COUNT 7.1 K/uL (4.1-10.2)
[2017-06-30 05:43] LABS: ANION GAP 11 MEQ/L (2-14); CHLORIDE 111 MEQ/L (99-109); GFR ESTIMATE (CALCULATED) 12 mL/min/; GLUCOSE 89 mg/dL (70-99); POTASSIUM 5.2 MEQ/L (3.7-5.4); SAMPLE HEMOLYSIS CHECK 0; SAMPLE ICTERIC CHECK 0; SAMPLE LIPEMIA CHECK 0; SODIUM 137 MEQ/L (136-147); UREA NITROGEN (BUN) 83 mg/dL (9-23)
[2017-06-30 07:51] VITALS: BP 121/56
[2017-06-30 08:04] LABS: POINT-OF-CARE USER ID ENVKC36
[2017-06-30 11:24] VITALS: BP 135/63
[2017-06-30 11:28] LABS: POINT-OF-CARE METER ID UU13113803
[2017-06-30 14:02] LABS: AHBS INDEX 0.21; HEPATITIS B SURFACE ANTIBODY Nonreactive
[2017-06-30 15:00] VITALS: BP 128/58
[2017-06-30 16:32] LABS: POINT-OF-CARE USER ID ENVKC36
[2017-06-30 19:24] VITALS: BP 114/55
[2017-07-01 00:26] VITALS: BP 119/58
[2017-07-01 04:40] VITALS: BP 121/58
[2017-07-01 06:13] LABS: BASOPHIL COUNT 0.1 K/uL (0-0.1); EOSINOPHIL (%) 5.7 % (0-5); EOSINOPHIL COUNT 0.5 K/uL (0-0.3); HEMATOCRIT 28.8 % (36.0-46.0); IMMATURE GRANULOCYTE (%) 0.4 % (0.0-0.7); INSTRUMENT ABS NEUTROPHIL CT 4.4 K/uL; LYMPHOCYTE COUNT 2.6 K/uL (1.0-2.8); MCH 27.6 PG (29.0-34.0); MCHC 31.6 G/DL (30.0-36.0); MCV 87.3 FL (83-99); MEAN PLAT.VOLUME 12.7 uM^3 (9.5-12.4); MONOCYTE (%) 8.7 % (3-12); MONOCYTE COUNT 0.7 K/uL (0-0.8); NEUTROPHIL (%) 53.2 % (45-76); NEUTROPHIL COUNT 4.4 K/uL (1.8-6.4); PLATELET COUNT 184 K/uL (156-360); RBC DIS.WIDTH-CV 14.5 % (11.8-14.6); RBC DIS.WIDTH-SD 46.1 % (39-53); WHITE BLOOD COUNT 8.3 K/uL (4.1-10.2)
[2017-07-01 06:54] LABS: ANION GAP 11 MEQ/L (2-14); CHLORIDE 109 MEQ/L (99-109); GLUCOSE 94 mg/dL (70-99); SAMPLE HEMOLYSIS CHECK 0; SAMPLE ICTERIC CHECK 0; SAMPLE LIPEMIA CHECK 0; SODIUM 140 MEQ/L (136-147); UREA NITROGEN (BUN) 58 mg/dL (9-23)
[2017-07-01 07:01] LABS: GFR ESTIMATE (CALCULATED) 16 mL/min/; POTASSIUM 3.9 MEQ/L (3.7-5.4)
[2017-07-01 07:29] LABS: POINT-OF-CARE METER ID UU13113803
[2017-07-01 08:43] LABS: ANION GAP 9 MEQ/L (2-14); CHLORIDE 109 MEQ/L (99-109); GFR ESTIMATE (CALCULATED) 16 mL/min/; GLUCOSE 138 mg/dL (70-99); SAMPLE HEMOLYSIS CHECK 0; SAMPLE ICTERIC CHECK 0; SAMPLE LIPEMIA CHECK 0; SODIUM 139 MEQ/L (136-147); UREA NITROGEN (BUN) 59 mg/dL (9-23)
[2017-07-01 11:51] VITALS: BP 110/53
[2017-07-01 12:21] LABS: POINT-OF-CARE METER ID UU13113803
[2017-07-01 16:23] LABS: POINT-OF-CARE METER ID UU13113803
[2017-07-01 17:16] VITALS: BP 144/66
[2017-07-01 19:04] VITALS: BP 188/77
[2017-07-01 21:39] LABS: POINT-OF-CARE METER ID UU13113781
[2017-07-01 23:38] VITALS: BP 185/75
[2017-07-02 04:42] VITALS: BP 191/77
[2017-07-02 04:53] LABS: EOSINOPHIL COUNT 0.4 K/uL (0-0.3); HEMATOCRIT 26.3 % (36.0-46.0); IMMATURE GRANULOCYTE (%) 0.4 % (0.0-0.7); LYMPHOCYTE COUNT 1.3 K/uL (1.0-2.8); MCH 27.8 PG (29.0-34.0); MCHC 32.3 G/DL (30.0-36.0); MCV 85.9 FL (83-99); MEAN PLAT.VOLUME 12.7 uM^3 (9.5-12.4); MONOCYTE (%) 8.5 % (3-12); MONOCYTE COUNT 0.6 K/uL (0-0.8); NEUTROPHIL (%) 67.7 % (45-76); PLATELET COUNT 149 K/uL (156-360); RBC DIS.WIDTH-CV 14.2 % (11.8-14.6); RBC DIS.WIDTH-SD 43.9 % (39-53); RED BLOOD COUNT 3.06 M/uL (3.80-5.20); WHITE BLOOD COUNT 7.4 K/uL (4.1-10.2)
[2017-07-02 05:12] LABS: CHLORIDE 108 mEq/L (99-109); POTASSIUM 4.1 mEq/L (3.7-5.4); SODIUM 140 mEq/L (136-147)
[2017-07-02 05:15] LABS: ANION GAP 10 MEQ/L (2-14); GLUCOSE 93 mg/dL (70-99)
[2017-07-02 05:17] LABS: GFR ESTIMATE (CALCULATED) 16 mL/min/
[2017-07-02 05:18] LABS: UREA NITROGEN (BUN) 48 mg/dL (9-23)
[2017-07-02 07:30] VITALS: BP 129/63
[2017-07-02 08:07] LABS: POINT-OF-CARE USER ID ENVKC36
[2017-07-02 12:07] LABS: POINT-OF-CARE USER ID ENVKC36
[2017-07-02 12:11] VITALS: BP 136/79
[2017-07-02 15:37] VITALS: BP 137/77
[2017-07-02 16:40] LABS: POINT-OF-CARE USER ID ENVKC36
[2017-07-02 20:13] VITALS: BP 110/52
[2017-07-03] VITALS (7 sets, daily range): BP systolic 120–202; BP diastolic 53–82
[2017-07-03 08:16] LABS: EOSINOPHIL (%) 5.6 % (0-5); EOSINOPHIL COUNT 0.5 K/uL (0-0.3); HEMATOCRIT 28.4 % (36.0-46.0); IMMATURE GRANULOCYTE (%) 0.4 % (0.0-0.7); INSTRUMENT ABS NEUTROPHIL CT 4.8 K/uL; LYMPHOCYTE COUNT 2.1 K/uL (1.0-2.8); MCH 28.8 PG (29.0-34.0); MCV 89.9 FL (83-99); MEAN PLAT.VOLUME 12.4 uM^3 (9.5-12.4); MONOCYTE (%) 7.5 % (3-12); MONOCYTE COUNT 0.6 K/uL (0-0.8); NEUTROPHIL (%) 59.8 % (45-76); NEUTROPHIL COUNT 4.8 K/uL (1.8-6.4); PLATELET COUNT 178 K/uL (156-360); RBC DIS.WIDTH-CV 14.3 % (11.8-14.6); RBC DIS.WIDTH-SD 46.7 % (39-53); RED BLOOD COUNT 3.16 M/uL (3.80-5.20); WHITE BLOOD COUNT 8.1 K/uL (4.1-10.2)
[2017-07-03 08:37] LABS: ANION GAP 8 MEQ/L (2-14); CHLORIDE 107 MEQ/L (99-109); GFR ESTIMATE (CALCULATED) 16 mL/min/; POTASSIUM 4.5 MEQ/L (3.7-5.4); SAMPLE HEMOLYSIS CHECK 0; SAMPLE ICTERIC CHECK 0; SAMPLE LIPEMIA CHECK 0; SODIUM 140 MEQ/L (136-147); UREA NITROGEN (BUN) 48 mg/dL (9-23)
[2017-07-03 08:39] LABS: GLUCOSE 147 mg/dL (70-99)
[2017-07-03 12:28] LABS: POINT-OF-CARE METER ID UU13113698
[2017-07-03 15:51] LABS: POINT-OF-CARE METER ID UU13113698
[2017-07-03 20:47] LABS: POINT-OF-CARE USER ID ENVMNS
[2017-07-04] VITALS (7 sets, daily range): BP systolic 134–172; BP diastolic 60–80
[2017-07-04 01:14] LABS: METH RESISTANT S AUREUS PCR NEGATIVE (NEGATIVE)
[2017-07-04 01:18] LABS: PROBE CHECK PASS; SPECIMEN PROCESSING CONTROL PASS
[2017-07-04 05:55] LABS: EOSINOPHIL (%) 4.9 % (0-5); EOSINOPHIL COUNT 0.4 K/uL (0-0.3); HEMATOCRIT 28.2 % (36.0-46.0); IMMATURE GRANULOCYTE (%) 0.4 % (0.0-0.7); INSTRUMENT ABS NEUTROPHIL CT 4.9 K/uL; LYMPHOCYTE COUNT 2.4 K/uL (1.0-2.8); MCH 27.4 PG (29.0-34.0); MCHC 30.5 G/DL (30.0-36.0); MCV 89.8 FL (83-99); MEAN PLAT.VOLUME 12.4 uM^3 (9.5-12.4); MONOCYTE COUNT 0.7 K/uL (0-0.8); NEUTROPHIL (%) 57.9 % (45-76); NEUTROPHIL COUNT 4.9 K/uL (1.8-6.4); PLATELET COUNT 143 K/uL (156-360); RBC DIS.WIDTH-CV 14.4 % (11.8-14.6); RED BLOOD COUNT 3.14 M/uL (3.80-5.20); WHITE BLOOD COUNT 8.4 K/uL (4.1-10.2)
[2017-07-04 21:00] LABS: POINT-OF-CARE METER ID UU13113698
[2017-07-05] VITALS (7 sets, daily range): BP systolic 145–184; BP diastolic 70–86
[2017-07-05 05:30] LABS: HEMATOCRIT 28.1 % (36.0-46.0); MCV 90.4 FL (83-99); MEAN PLAT.VOLUME 12.2 uM^3 (9.5-12.4); PLATELET COUNT 154 K/uL (156-360); RBC DIS.WIDTH-CV 14.6 % (11.8-14.6); RED BLOOD COUNT 3.11 M/uL (3.80-5.20); WHITE BLOOD COUNT 8.8 K/uL (4.1-10.2)
[2017-07-05 05:55] LABS: ANION GAP 10 MEQ/L (2-14); CHLORIDE 105 MEQ/L (99-109); GFR ESTIMATE (CALCULATED) 14 mL/min/; GLUCOSE 112 mg/dL (70-99); POTASSIUM 4.1 MEQ/L (3.7-5.4); SAMPLE HEMOLYSIS CHECK 0; SAMPLE ICTERIC CHECK 0; SAMPLE LIPEMIA CHECK 0; SODIUM 143 MEQ/L (136-147); UREA NITROGEN (BUN) 41 mg/dL (9-23)
[2017-07-05 18:35] LABS: POINT-OF-CARE METER ID UU13113698
[2017-07-06 03:43] VITALS: BP 150/70
[2017-07-06 05:44] LABS: HEMATOCRIT 27.9 % (36.0-46.0); MCH 28.2 PG (29.0-34.0); MCHC 31.2 G/DL (30.0-36.0); MCV 90.6 FL (83-99); MEAN PLAT.VOLUME 12.3 uM^3 (9.5-12.4); PLATELET COUNT 168 K/uL (156-360); RBC DIS.WIDTH-CV 14.6 % (11.8-14.6); RBC DIS.WIDTH-SD 48.3 % (39-53); RED BLOOD COUNT 3.08 M/uL (3.80-5.20); WHITE BLOOD COUNT 9.9 K/uL (4.1-10.2)
[2017-07-06 06:56] LABS: ANION GAP 8 MEQ/L (2-14); CHLORIDE 107 MEQ/L (99-109); POTASSIUM 4.4 MEQ/L (3.7-5.4); SAMPLE HEMOLYSIS CHECK 0; SAMPLE ICTERIC CHECK 0; SAMPLE LIPEMIA CHECK 0; SODIUM 143 MEQ/L (136-147)
[2017-07-06 07:02] LABS: GFR ESTIMATE (CALCULATED) 13 mL/min/; GLUCOSE 108 mg/dL (70-99); UREA NITROGEN (BUN) 53 mg/dL (9-23)
[2017-07-06 07:08] VITALS: BP 159/5
[2017-07-06 16:02] VITALS: BP 160/59
[2017-07-06 19:36] VITALS: BP 138/58
[2017-07-06 21:02] LABS: POINT-OF-CARE METER ID UU13113803
[2017-07-06 23:08] VITALS: BP 142/62
[2017-07-07 03:27] VITALS: BP 142/52
[2017-07-07 20:17] VITALS: BP 182/79
[2017-07-07 21:31] LABS: POINT-OF-CARE METER ID UU13113803
[2017-07-08] VITALS: BP 154/71
[2017-07-08 03:49] VITALS: BP 155/85
[2017-07-08 06:50] VITALS: BP 173/82
[2017-07-08 08:22] LABS: EOSINOPHIL (%) 4.4 % (0-5); EOSINOPHIL COUNT 0.4 K/uL (0-0.3); HEMATOCRIT 26.3 % (36.0-46.0); IMMATURE GRANULOCYTE (%) 0.1 % (0.0-0.7); LYMPHOCYTE COUNT 2.1 K/uL (1.0-2.8); MCH 27.8 PG (29.0-34.0); MCHC 31.2 G/DL (30.0-36.0); MCV 89.2 FL (83-99); MEAN PLAT.VOLUME 12.1 uM^3 (9.5-12.4); MONOCYTE (%) 7.1 % (3-12); MONOCYTE COUNT 0.6 K/uL (0-0.8); PLATELET COUNT 168 K/uL (156-360); RBC DIS.WIDTH-CV 14.3 % (11.8-14.6); RED BLOOD COUNT 2.95 M/uL (3.80-5.20)
[2017-07-08 08:38] LABS: ANION GAP 7 MEQ/L (2-14); CHLORIDE 103 MEQ/L (99-109); POTASSIUM 4.7 MEQ/L (3.7-5.4); SAMPLE HEMOLYSIS CHECK 0; SAMPLE ICTERIC CHECK 0; SAMPLE LIPEMIA CHECK 0; SODIUM 139 MEQ/L (136-147)
[2017-07-08 08:43] LABS: GFR ESTIMATE (CALCULATED) 14 mL/min/; GLUCOSE 120 mg/dL (70-99); UREA NITROGEN (BUN) 42 mg/dL (9-23)
[2017-07-08 12:25] VITALS: BP 142/60
[2017-07-08 15:10] VITALS: BP 140/74
[2017-07-08 20:14] VITALS: BP 146/65
[2017-07-08 21:31] LABS: POINT-OF-CARE METER ID UU13113781
[2017-07-09] VITALS (7 sets, daily range): BP systolic 142–170; BP diastolic 56–77
[2017-07-09 07:38] LABS: POINT-OF-CARE METER ID UU13113781
[2017-07-10 00:34] VITALS: BP 160/59
[2017-07-10 03:45] VITALS: BP 137/63
[2017-07-10 05:05] LABS: EOSINOPHIL (%) 5.2 % (0-5); EOSINOPHIL COUNT 0.4 K/uL (0-0.3); IMMATURE GRANULOCYTE (%) 0.3 % (0.0-0.7); LYMPHOCYTE COUNT 1.9 K/uL (1.0-2.8); MCH 27.4 PG (29.0-34.0); MCHC 30.8 G/DL (30.0-36.0); MEAN PLAT.VOLUME 12.5 uM^3 (9.5-12.4); MONOCYTE (%) 7.8 % (3-12); MONOCYTE COUNT 0.5 K/uL (0-0.8); NEUTROPHIL (%) 58.4 % (45-76); PLATELET COUNT 198 K/uL (156-360); RBC DIS.WIDTH-CV 14.1 % (11.8-14.6); RED BLOOD COUNT 2.92 M/uL (3.80-5.20); WHITE BLOOD COUNT 6.9 K/uL (4.1-10.2)
[2017-07-10 05:29] LABS: ANION GAP 9 MEQ/L (2-14); CHLORIDE 104 MEQ/L (99-109); GFR ESTIMATE (CALCULATED) 13 mL/min/; GLUCOSE 96 mg/dL (70-99); POTASSIUM 4.6 MEQ/L (3.7-5.4); SAMPLE HEMOLYSIS CHECK 0; SAMPLE ICTERIC CHECK 0; SAMPLE LIPEMIA CHECK 0; SODIUM 141 MEQ/L (136-147); UREA NITROGEN (BUN) 35 mg/dL (9-23)
[2017-07-10 07:01] VITALS: BP 172/75
[2017-07-10 12:38] VITALS: BP 189/75
[2017-07-10 13:08] LABS: POINT-OF-CARE USER ID ENVKC36
[2017-07-10] MEDS ORDERED: LOSARTAN POTASS50 MG PO (13:45)
[2017-07-10] MEDS ORDERED: APRESOLINE25 MG PO (13:45)
[2017-07-10] MEDS ORDERED: TORSEMIDE20 MG PO (13:47)
[2017-07-10] MEDS ORDERED: PANTOPRAZOLE SO40 MG PO (13:47)
[2017-07-10] MEDS ORDERED: ASPIR 8181 M1 PO (13:53)
[2017-07-10] MEDS ORDERED: LYRICA50 MG PO (13:54)
[2017-07-10] MEDS ORDERED: HYDROCODON-ACE1 EAC7 PO (13:54)
[2017-07-10 15:34] VITALS: BP 166/70
== END 2017-07-10 17:05 | DRG 380 ==
LOC: 4EAST 14:43
PROVIDERS: Family Medicine; Hospitalist; Internal Medicine; Internal Medicine Nephrology; Specialist
PROC: 30233N1 Transfusion of Nonautologous Red Blood Cells into Peripheral Vein, Percutaneous Approach (ICD-10-PCS; 2017-06-27)
PROC: 0DJ08ZZ Inspection of Upper Intestinal Tract, Via Natural or Artificial Opening Endoscopic (ICD-10-PCS; principal; 2017-06-29)
PROC: 5A1D60Z (ICD-10-PCS; 2017-06-30)
DX: K22.11 Ulcer of esophagus with bleeding (principal); D62 Acute posthemorrhagic anemia; I95.9 Hypotension, unspecified; N17.9 Acute kidney failure, unspecified; I49.5 Sick sinus syndrome; N39.0 Urinary tract infection, site not specified; B96.20 Unspecified Escherichia coli [E. coli] as the cause of diseases classified elsewhere; K29.60 Other gastritis without bleeding; K29.80 Duodenitis without bleeding; K44.9 Diaphragmatic hernia without obstruction or gangrene; I12.0 Hypertensive chronic kidney disease with stage 5 chronic kidney disease or end stage renal disease; E11.22 Type 2 diabetes mellitus with diabetic chronic kidney disease; N18.6 End stage renal disease; D63.1 Anemia in chronic kidney disease; E87.2 Acidosis; Z99.2 Dependence on renal dialysis; I69.354 Hemiplegia and hemiparesis following cerebral infarction affecting left non-dominant side; R33.9 Retention of urine, unspecified; I25.10 Atherosclerotic heart disease of native coronary artery without angina pectoris; M16.12 Unilateral primary osteoarthritis, left hip; M47.892 Other spondylosis, cervical region; N31.9 Neuromuscular dysfunction of bladder, unspecified; E78.5 Hyperlipidemia, unspecified; Z79.82 Long term (current) use of aspirin; Z79.84 Long term (current) use of oral hypoglycemic drugs; Z82.49 Family history of ischemic heart disease and other diseases of the circulatory system
CPT/HCPCS: 80048; 80053; 80069; 80074; 82272; 82948; 83605; 85014; 85018; 85025; 85027; 86706; 86900; 86901; 87641; 93005; 94799; 97530 GO; C1753; C9113; J0360; J0696; J0881; J1815; J2405; J7030; J7050

== ENCOUNTER 2017-07-20 13:37 | Day surgery (SDC) | payer OTHER ==
[~2017-07-20 13:37] MED LIST changes: +APRESOLINE25 MG PO; +ASPIR 8181 M1 PO; +LYRICA50 MG PO; +PANTOPRAZOLE SO40 MG PO
[2017-07-20] MEDS ORDERED: PROCRIT10000 UNI1 IV (15:09)
[2017-07-20 15:17] LABS: POINT-OF-CARE METER ID UU13113696; POINT-OF-CARE USER ID HMLCJM07
== END 2017-07-20 17:17 ==
LOC: CATH 13:37
PROVIDERS: Surgery
DX: T82.858A Stenosis of other vascular prosthetic devices, implants and grafts, initial encounter (principal); N18.6 End stage renal disease; Z99.2 Dependence on renal dialysis
CPT/HCPCS: 82948; C1725; C1769; C1894; J1644; J2250; J3010

== ENCOUNTER 2017-10-28 22:34 | Inpatient (IN) | payer OTHER ==
[~2017-10-28] VITALS: Ht 162.6 cm; Wt 64.3 kg
[2017-10-29 01:35] LABS: MCH 30.7 PG (29.0-34.0); MCHC 33.3 G/DL (30.0-36.0); PLATELET COUNT 59 K/uL (156-360); RBC DIS.WIDTH-SD 50.6 % (39-53); RED BLOOD COUNT 3.26 M/uL (3.80-5.20); WHITE BLOOD COUNT 7.8 K/uL (4.1-10.2)
[2017-10-29 01:47] LABS: ALBUMIN 3.2 g/dL (3.2-4.8); CHLORIDE 96 mEq/L (99-109); POTASSIUM 3.8 mEq/L (3.7-5.4); SODIUM 135 mEq/L (136-147)
[2017-10-29 01:49] LABS: TOTAL PROTEIN 6.7 g/dL (6.4-8.3)
[2017-10-29 01:50] LABS: GLUCOSE 421 mg/dL (70-99)
[2017-10-29 01:51] LABS: TOTAL BILIRUBIN 0.4 mg/dL (0.0-1.0)
[2017-10-29 01:53] LABS: ALKALINE PHOSPHATASE 131 IU/L (3-129); CREATININE 3.3 mg/dL (0.6-1.3); GFR ESTIMATE (CALCULATED) 15 mL/min/
[2017-10-29 01:54] LABS: UREA NITROGEN (BUN) 29 mg/dL (9-23)
[2017-10-29 01:55] LABS: AST (GOT) 12 IU/L (2-34)
[2017-10-29 01:56] LABS: ALT (GPT) 11 IU/L (3-49)
[2017-10-29 03:17] LABS: C-REACTIVE PROTEIN 30.9 MG/L (0-10)
[2017-10-29 13:29] VITALS: BP 207/73
[2017-10-29] MEDS ORDERED: APRESOLINE50 MG PO (14:02)
[2017-10-29] MEDS ORDERED: DEMADEX20 MG PO (14:05)
[2017-10-29] MEDS ORDERED: OMEPRAZOLE20 MG PO (14:06)
[2017-10-29] MEDS ORDERED: GLIPIZIDE10 MG PO (14:07)
[2017-10-29 14:57] VITALS: BP 178/74
[2017-10-29 17:11] VITALS: BP 165/78
[2017-10-29 20:25] VITALS: BP 155/61
[2017-10-29 23:44] VITALS: BP 131/49
[2017-10-30 03:20] VITALS: BP 147/58
[2017-10-30 08:00] VITALS: BP 134/76
[2017-10-30 12:32] LABS: BASOPHIL (%) 0.3 % (0-1); EOSINOPHIL (%) 3.1 % (0-5); EOSINOPHIL COUNT 0.2 K/uL (0-0.3); HEMATOCRIT 28.5 % (36.0-46.0); HEMOGLOBIN 9.5 G/DL (11.9-15.5); IMMATURE GRANULOCYTE (%) 0.3 % (0.0-0.7); LYMPHOCYTE (%) 33.3 % (15-42); LYMPHOCYTE COUNT 2.2 K/uL (1.0-2.8); MCH 31.1 PG (29.0-34.0); MCHC 33.3 G/DL (30.0-36.0); MCV 93.4 FL (83-99); MONOCYTE (%) 6.6 % (3-12); MONOCYTE COUNT 0.4 K/uL (0-0.8); NEUTROPHIL (%) 56.4 % (45-76); NEUTROPHIL COUNT 3.7 K/uL (1.8-6.4); RBC DIS.WIDTH-CV 15.3 % (11.8-14.6); RBC DIS.WIDTH-SD 52.3 % (39-53); RED BLOOD COUNT 3.05 M/uL (3.80-5.20); WHITE BLOOD COUNT 6.5 K/uL (4.1-10.2)
[2017-10-30 12:40] LABS: CHLORIDE 98 MEQ/L (99-109); POTASSIUM 4.1 MEQ/L (3.7-5.4); SODIUM 136 MEQ/L (136-147)
[2017-10-30 12:45] LABS: PLATELET COUNT 101 K/uL (156-360)
[2017-10-30 12:46] LABS: GFR ESTIMATE (CALCULATED) 11 mL/min/; GLUCOSE 233 mg/dL (70-99); PHOSPHORUS 3.6 mg/dL (2.5-4.9)
[2017-10-30 12:47] LABS: CREATININE 4.2 MG/DL (0.6-1.3); UREA NITROGEN (BUN) 49 mg/dL (9-23)
[2017-10-30 17:07] VITALS: BP 196/77
[2017-10-30 20:27] VITALS: BP 154/85
[2017-10-30 23:31] VITALS: BP 199/79
[2017-10-31 03:40] VITALS: BP 144/65
[2017-10-31 07:35] VITALS: BP 198/81
[2017-10-31 10:58] VITALS: BP 150/67
[2017-10-31 15:28] VITALS: BP 126/59
[2017-10-31 19:14] VITALS: BP 139/66
[2017-10-31 23:23] VITALS: BP 106/51
[2017-11-01 05:22] VITALS: BP 117/56
[2017-11-01 07:58] LABS: VANCOMYCIN, TROUGH 14.9 MCG/ML (10-20)
[2017-11-01 09:05] LABS: BASOPHIL (%) 0.5 % (0-1); EOSINOPHIL (%) 5.6 % (0-5); EOSINOPHIL COUNT 0.4 K/uL (0-0.3); HEMATOCRIT 28.1 % (36.0-46.0); IMMATURE GRANULOCYTE (%) 0.2 % (0.0-0.7); LYMPHOCYTE (%) 32.8 % (15-42); LYMPHOCYTE COUNT 2.1 K/uL (1.0-2.8); MCH 30.2 PG (29.0-34.0); MCV 94.3 FL (83-99); MONOCYTE (%) 6.8 % (3-12); MONOCYTE COUNT 0.4 K/uL (0-0.8); NEUTROPHIL (%) 54.1 % (45-76); NEUTROPHIL COUNT 3.5 K/uL (1.8-6.4); RBC DIS.WIDTH-SD 51.6 % (39-53); RED BLOOD COUNT 2.98 M/uL (3.80-5.20); WHITE BLOOD COUNT 6.5 K/uL (4.1-10.2)
[2017-11-01 09:10] LABS: PLATELET COUNT 163 K/uL (156-360)
[2017-11-01 09:22] LABS: ALBUMIN 2.9 G/DL (3.2-4.8); CHLORIDE 102 MEQ/L (99-109); CREATININE 4.2 MG/DL (0.6-1.3); GFR ESTIMATE (CALCULATED) 11 mL/min/; GLUCOSE 193 mg/dL (70-99); PHOSPHORUS 4.6 mg/dL (2.5-4.9); POTASSIUM 3.8 MEQ/L (3.7-5.4); SODIUM 140 MEQ/L (136-147); UREA NITROGEN (BUN) 49 mg/dL (9-23)
[2017-11-01 11:51] VITALS: BP 132/60
[2017-11-01] MEDS ORDERED: AUGMENTIN500 MG PO (13:09)
[2017-11-01] MEDS ORDERED: PERCOCET 5/31 TABLET PO (13:11)
== END 2017-11-01 16:41 | disposition home health service (06) | DRG 638 ==
LOC: EXP 22:34 → EME 22:34 → 4SOUTH 10-29 03:03 → EDOF 10-29 03:03 → ENRESERV 10-29 03:23 → CANRESERV 10-29 03:23 → 4SOUTH 10-29 12:44 → ENRESERV 10-30 10:29 → 3EAST 10-30 16:20
PROVIDERS: Internal Medicine; Internal Medicine Nephrology; Physician Assistant
PROC: 0HBNXZZ Excision of Left Foot Skin, External Approach (ICD-10-PCS; principal; 2017-10-29)
PROC: 5A1D70Z Performance of Urinary Filtration, Intermittent, Less than 6 Hours Per Day (ICD-10-PCS; 2017-10-30)
DX: E11.628 Type 2 diabetes mellitus with other skin complications (principal); L03.116 Cellulitis of left lower limb; L03.032 Cellulitis of left toe; E11.621 Type 2 diabetes mellitus with foot ulcer; L97.526 Non-pressure chronic ulcer of other part of left foot with bone involvement without evidence of necrosis; N17.9 Acute kidney failure, unspecified; E11.65 Type 2 diabetes mellitus with hyperglycemia; E11.22 Type 2 diabetes mellitus with diabetic chronic kidney disease; E11.51 Type 2 diabetes mellitus with diabetic peripheral angiopathy without gangrene; I13.2 Hypertensive heart and chronic kidney disease with heart failure and with stage 5 chronic kidney disease, or end stage renal disease; I50.9 Heart failure, unspecified; N18.6 End stage renal disease; Z99.2 Dependence on renal dialysis; I69.354 Hemiplegia and hemiparesis following cerebral infarction affecting left non-dominant side; N31.9 Neuromuscular dysfunction of bladder, unspecified
CPT/HCPCS: 73660; 73718; 80053; 80069; 80202; 82948; 85025; 85027; 86140; 87070; 87075; 87076; 87205; 99281; 99285; A6260; J0295; J0360; J1644; J1815; J3370; J7050

== ENCOUNTER 2017-12-06 22:42 | Inpatient (IN) | payer OTHER ==
[~2017-12-06] VITALS: Ht 154.9 cm; Wt 57.0 kg
[~2017-12-06 22:42] MED LIST changes: +AUGMENTIN500 MG PO; +OMEPRAZOLE20 MG PO; +PERCOCET 5/31 TABLET PO
[2017-12-07 13:10] VITALS: BP 159/71
[2017-12-07 13:19] LABS: HEMATOCRIT 31.8 % (36.0-46.0); HEMOGLOBIN 10.3 G/DL (11.9-15.5); MCH 29.9 PG (29.0-34.0); MCHC 32.4 G/DL (30.0-36.0); MCV 92.2 FL (83-99); RBC DIS.WIDTH-CV 17.3 % (11.8-14.6); RBC DIS.WIDTH-SD 57.7 % (39-53); RED BLOOD COUNT 3.45 M/uL (3.80-5.20)
[2017-12-07 13:33] LABS: CHLORIDE 98 MEQ/L (99-109); POTASSIUM 3.5 MEQ/L (3.7-5.4); SODIUM 138 MEQ/L (136-147)
[2017-12-07 13:39] LABS: GFR ESTIMATE (CALCULATED) 26 mL/min/; GLUCOSE 105 mg/dL (70-99); UREA NITROGEN (BUN) 13 mg/dL (9-23)
[2017-12-07 13:57] LABS: PLAT.SUFFICIENCY ADEQUATE; PLATELET COUNT 329 K/uL (156-360)
[2017-12-07 18:23] VITALS: BP 179/74
[2017-12-07 20:08] VITALS: BP 192/79
[2017-12-07 23:35] VITALS: BP 157/71
[2017-12-08] VITALS (7 sets, daily range): BP systolic 115–178; BP diastolic 41–90
[2017-12-08 06:31] LABS: HEMATOCRIT 29.7 % (36.0-46.0); HEMOGLOBIN 9.1 G/DL (11.9-15.5); MCHC 30.6 G/DL (30.0-36.0); MCV 94.6 FL (83-99); PLATELET COUNT 249 K/uL (156-360); RBC DIS.WIDTH-CV 17.3 % (11.8-14.6); RBC DIS.WIDTH-SD 60.3 % (39-53); RED BLOOD COUNT 3.14 M/uL (3.80-5.20); WHITE BLOOD COUNT 14.9 K/uL (4.1-10.2)
[2017-12-08 06:55] LABS: CHLORIDE 98 MEQ/L (99-109); GFR ESTIMATE (CALCULATED) 16 mL/min/; POTASSIUM 3.7 MEQ/L (3.7-5.4); SODIUM 138 MEQ/L (136-147)
[2017-12-08 06:58] LABS: CREATININE 3.1 MG/DL (0.6-1.3); GLUCOSE 31 mg/dL (70-99); UREA NITROGEN (BUN) 21 mg/dL (9-23)
[2017-12-09] VITALS (11 sets, daily range): BP systolic 120–191; BP diastolic 45–79
[2017-12-09 09:33] LABS: BASOPHIL (%) 0.5 % (0-1); BASOPHIL COUNT 0.1 K/uL (0-0.1); EOSINOPHIL (%) 5.8 % (0-5); EOSINOPHIL COUNT 0.6 K/uL (0-0.3); HEMOGLOBIN 9.1 G/DL (11.9-15.5); IMMATURE GRANULOCYTE (%) 0.8 % (0.0-0.7); LYMPHOCYTE (%) 8.7 % (15-42); MCH 28.7 PG (29.0-34.0); MCHC 30.3 G/DL (30.0-36.0); MCV 94.6 FL (83-99); MONOCYTE (%) 5.8 % (3-12); MONOCYTE COUNT 0.6 K/uL (0-0.8); NEUTROPHIL (%) 78.4 % (45-76); NEUTROPHIL COUNT 8.7 K/uL (1.8-6.4); RBC DIS.WIDTH-CV 17.2 % (11.8-14.6); RBC DIS.WIDTH-SD 59.8 % (39-53); RED BLOOD COUNT 3.17 M/uL (3.80-5.20); WHITE BLOOD COUNT 11.1 K/uL (4.1-10.2)
[2017-12-09 09:38] LABS: PLATELET COUNT 331 K/uL (156-360)
[2017-12-09 09:45] LABS: ALBUMIN 2.7 g/dL (3.2-4.8)
[2017-12-09 09:46] LABS: CHLORIDE 97 mEq/L (99-109); POTASSIUM 4.1 mEq/L (3.7-5.4); SODIUM 134 mEq/L (136-147)
[2017-12-09 09:48] LABS: GLUCOSE 201 mg/dL (70-99)
[2017-12-09 09:51] LABS: GFR ESTIMATE (CALCULATED) 10 mL/min/; PHOSPHORUS 5.5 mg/dL (2.5-4.9)
[2017-12-09 09:52] LABS: CREATININE 4.5 mg/dL (0.6-1.3)
[2017-12-09 09:56] LABS: UREA NITROGEN (BUN) 35 mg/dL (9-23)
[2017-12-10] VITALS (7 sets, daily range): BP systolic 157–192; BP diastolic 69–77
[2017-12-10 05:47] LABS: BASOPHIL (%) 0.4 % (0-1); EOSINOPHIL (%) 4.8 % (0-5); EOSINOPHIL COUNT 0.4 K/uL (0-0.3); HEMATOCRIT 26.6 % (36.0-46.0); HEMOGLOBIN 7.6 G/DL (11.9-15.5); IMMATURE GRANULOCYTE (%) 0.8 % (0.0-0.7); LYMPHOCYTE (%) 15.1 % (15-42); LYMPHOCYTE COUNT 1.1 K/uL (1.0-2.8); MCH 28.8 PG (29.0-34.0); MCHC 28.6 G/DL (30.0-36.0); MCV 100.8 FL (83-99); MONOCYTE (%) 9.3 % (3-12); MONOCYTE COUNT 0.7 K/uL (0-0.8); NEUTROPHIL (%) 69.6 % (45-76); NEUTROPHIL COUNT 5.2 K/uL (1.8-6.4); PLATELET COUNT 235 K/uL (156-360); RBC DIS.WIDTH-CV 17.7 % (11.8-14.6); RBC DIS.WIDTH-SD 65.8 % (39-53); RED BLOOD COUNT 2.64 M/uL (3.80-5.20); WHITE BLOOD COUNT 7.5 K/uL (4.1-10.2)
[2017-12-10 07:37] LABS: CHLORIDE 99 MEQ/L (99-109); GFR ESTIMATE (CALCULATED) 16 mL/min/; GLUCOSE 195 mg/dL (70-99); POTASSIUM 4.2 MEQ/L (3.7-5.4); SODIUM 136 MEQ/L (136-147); UREA NITROGEN (BUN) 18 mg/dL (9-23)
[2017-12-11 04:46] VITALS: BP 165/69
[2017-12-11 06:09] LABS: BASOPHIL (%) 0.4 % (0-1); EOSINOPHIL (%) 4.9 % (0-5); EOSINOPHIL COUNT 0.5 K/uL (0-0.3); HEMATOCRIT 30.2 % (36.0-46.0); HEMOGLOBIN 9.2 G/DL (11.9-15.5); IMMATURE GRANULOCYTE (%) 1.1 % (0.0-0.7); LYMPHOCYTE (%) 22.7 % (15-42); LYMPHOCYTE COUNT 2.5 K/uL (1.0-2.8); MCH 28.9 PG (29.0-34.0); MCHC 30.5 G/DL (30.0-36.0); MONOCYTE (%) 8.8 % (3-12); NEUTROPHIL (%) 62.1 % (45-76); NEUTROPHIL COUNT 6.9 K/uL (1.8-6.4); RBC DIS.WIDTH-CV 17.3 % (11.8-14.6); RBC DIS.WIDTH-SD 60.3 % (39-53)
[2017-12-11 06:13] LABS: PLATELET COUNT 319 K/uL (156-360); RED BLOOD COUNT 3.18 M/uL (3.80-5.20)
[2017-12-11 06:24] LABS: CHLORIDE 98 MEQ/L (99-109); GFR ESTIMATE (CALCULATED) 9 mL/min/; POTASSIUM 4.2 MEQ/L (3.7-5.4); SODIUM 135 MEQ/L (136-147)
[2017-12-11 06:26] LABS: CREATININE 4.8 MG/DL (0.6-1.3); GLUCOSE 67 mg/dL (70-99); UREA NITROGEN (BUN) 29 mg/dL (9-23)
[2017-12-11 07:01] VITALS: BP 179/77
[2017-12-11 12:57] VITALS: BP 165/72
[2017-12-11] MEDS ORDERED: ENDOCET 5-3251 EACH PO (14:34)
[2017-12-11 14:57] VITALS: BP 103/41
[2017-12-11 19:29] VITALS: BP 130/62
[2017-12-12] VITALS (7 sets, daily range): BP systolic 154–180; BP diastolic 62–81
[2017-12-13] VITALS (8 sets, daily range): BP systolic 144–190; BP diastolic 67–87
[2017-12-14 04:18] VITALS: BP 169/74
[2017-12-14 08:33] LABS: BASOPHIL (%) 0.5 % (0-1); BASOPHIL COUNT 0.1 K/uL (0-0.1); EOSINOPHIL (%) 3.9 % (0-5); EOSINOPHIL COUNT 0.5 K/uL (0-0.3); HEMATOCRIT 31.8 % (36.0-46.0); HEMOGLOBIN 9.7 G/DL (11.9-15.5); IMMATURE GRANULOCYTE (%) 1.6 % (0.0-0.7); LYMPHOCYTE (%) 13.8 % (15-42); LYMPHOCYTE COUNT 1.8 K/uL (1.0-2.8); MCH 28.9 PG (29.0-34.0); MCHC 30.5 G/DL (30.0-36.0); MCV 94.6 FL (83-99); MONOCYTE (%) 5.6 % (3-12); MONOCYTE COUNT 0.8 K/uL (0-0.8); NEUTROPHIL (%) 74.6 % (45-76); PLATELET COUNT 337 K/uL (156-360); RBC DIS.WIDTH-CV 17.3 % (11.8-14.6); RBC DIS.WIDTH-SD 59.7 % (39-53); RED BLOOD COUNT 3.36 M/uL (3.80-5.20); WHITE BLOOD COUNT 13.4 K/uL (4.1-10.2)
[2017-12-14 08:49] LABS: ALBUMIN 2.5 G/DL (3.2-4.8); CHLORIDE 100 MEQ/L (99-109); GFR ESTIMATE (CALCULATED) 6 mL/min/; GLUCOSE 155 mg/dL (70-99); PHOSPHORUS 5.8 mg/dL (2.5-4.9); POTASSIUM 4.3 MEQ/L (3.7-5.4); SODIUM 136 MEQ/L (136-147)
[2017-12-14 08:51] LABS: CREATININE 6.7 MG/DL (0.6-1.3); UREA NITROGEN (BUN) 46 mg/dL (9-23)
[2017-12-14 12:10] VITALS: BP 216/88
[2017-12-14 14:21] VITALS: BP 155/67
[2017-12-14] MEDS ORDERED: BACTRIM,SEPT1 TABLET PO (15:01)
[2017-12-14 15:45] VITALS: BP 154/72
== END 2017-12-14 18:12 | DRG 239 ==
LOC: ENRESERV 22:42 → 2SOUTH 12-07 12:24 → ENRESERV 12-07 15:42 → 3EAST 12-07 18:07 → ENRESERV 12-08 09:43 → 3EAST 12-08 18:03 → 4WEST 12-08 19:54 → ENRESERV 12-09 02:39 → 4WEST 12-09 07:54 → 4EAST 12-09 13:23 → ENPENDDIS 12-14 → 4EAST 12-14 18:12
PROVIDERS: Internal Medicine Nephrology; Surgery
DX: I70.262 Atherosclerosis of native arteries of extremities with gangrene, left leg (principal); E11.52 Type 2 diabetes mellitus with diabetic peripheral angiopathy with gangrene; I13.2 Hypertensive heart and chronic kidney disease with heart failure and with stage 5 chronic kidney disease, or end stage renal disease; I50.9 Heart failure, unspecified; N18.6 End stage renal disease; I69.354 Hemiplegia and hemiparesis following cerebral infarction affecting left non-dominant side; E11.22 Type 2 diabetes mellitus with diabetic chronic kidney disease; N31.9 Neuromuscular dysfunction of bladder, unspecified; I65.21 Occlusion and stenosis of right carotid artery; Z99.2 Dependence on renal dialysis; E78.00 Pure hypercholesterolemia, unspecified; D63.1 Anemia in chronic kidney disease; E78.5 Hyperlipidemia, unspecified
CPT/HCPCS: 80048; 80069; 82948; 85025; 85027; 87070; 87075; 87077; 87186; 87205; 87641; 88305; 93005; 94799; J0690; J0881; J1170; J1644; J1815; J2250; J2405; J2543; J2720; J2795; J3010; J7050; S0020